=== PATIENT | male | born 1945 | race Caucasian/White ===

== ENCOUNTER → 2023-01-30 10:09 | Outpatient (CLI) | payer MEDICARE, SELFPAY ==
--- NOTE | ~2023-01-30 | MR_ITS ---
MRI of the left shoulder Technique: Axial proton-density fat-sat images, coronal proton density fat-sat and T2 fat-sat images, and sagittal T1-weighted and T2 fat-sat images were acquired. Clinical History: Pain Findings: There is moderate to advanced AC joint degenerative change. There is bony productive change at the distal clavicle. Coracoclavicular, coracoacromial, and coracohumeral ligaments appear intact. Possible focal bursal surface partial thickness tearing at the very anterior, distal supraspinatus te ndon insertion. No definite full-thickness tear of the supraspinatus or infraspinatus tendon is ident ified. There is mild tendinosis. Subscapularis tendon is intact with mild diffuse tendinosis. Tendon of long head of the biceps demonstrates possible longitudinal split tearing. No complete rupture evid ent. Blunting of the superior labrum suggesting labral tear. Probable subtle labral foramen noted at the a nterosuperior aspect. There is thickening and increased signal of the inferior glenohumeral ligament. There is no degenerat xuan change of the glenohumeral joint. There is fluid distention of the subacromial/subdeltoid bursa. No muscle atrophy or edema. Impression: Thickening and increased signal of the inferior glenohumeral ligament suggests adhesive capsulitis. Subacromial/subdeltoid bursitis. Questionable focal bursal surface tearing at the very anterior, distal supraspinatus tendon insertion . No full-thickness rotator cuff tear seen. There is mild rotator cuff tendinosis. Blunting of the superior labrum likely represents superior labral tear. No definite anterior or poste rior extension. Moderate to advanced AC joint degenerative change. Reviewed, dictated and finalized at [facility]. Impression: Thickening and increased signal of the inferior glenohumeral ligament suggests adhesive capsulitis. Subacromial/subdeltoid bursitis. Questionable focal bursal surface tearing at the very anterior, distal supraspi natus tendon insertion. No full-thickness rotator cuff tear seen. There is mild rotator cuff tendinosis. Blunting of the superior labrum likely represents superior labral tear. No defi nite anterior or posterior extension. Moderate to advanced AC joint degenerative change.
== END ==
PROVIDERS: PCP Pediatrics; Visit Provider Pediatrics
DX: M19.012 Primary osteoarthritis, left shoulder (principal)
CPT/HCPCS: 73221

== ENCOUNTER → 2023-05-17 08:15 | Outpatient (CLI) | payer MEDICARE, SELFPAY ==
--- NOTE | ~2023-05-17 | MR_ITS ---
EXAMINATION: MR shoulder RT wo con DATE: 05/17/2023 09:01 INDICATION: Right shoulder pain TECHNIQUE: Magnetic resonance imaging (MRI) of the right shoulder was performed without intravenous c ontrast. Sequences included axial PD-weighted FS FSE, coronal oblique PD-weighted FS FSE, coronal obl ique T2-weighted FS FSE, sagittal PD-weighted FS FSE, and sagittal T1-weighted SE. COMPARISON: None. FINDINGS: Coracoacromial arch: The acromion undersurface is flat in morphology (type I). The coracoacromial ligament is normal. Mode rate acromioclavicular osteoarthritis. Rotator cuff: Full-thickness tear along the cephalad two thirds of the lesser tuberosity insertion of the subscapul trinity tendon. The caudal third of the tendon as well seated superficial fibers contiguous with the tra nsverse humeral ligament remains intact. The tear extends posteriorly as a full-thickness tear extend ing 1.6 cm anteroposteriorly along the superior and anterior half of the middle facet of the greater tuberosity which involves essentially the entire supraspinatus tendon and the conjoined portion of th e supraspinatus and infraspinatus tendons. The of the attenuated medial tear margin is retracted appr oximately 3-3.5 cm medially. There is moderate tendinopathy without discrete tear of the more posteri or infraspinatus tendon. The teres minor tendon is normal. There is only mild increased signal and fa tty atrophy of the supraspinatus and subscapularis muscle bellies. Biceps tendon, glenoid labrum and glenohumeral cartilage: Tear of the superior to posterosuperior glenoid labrum beginning anteriorly at the 1:00 position exte nding posteriorly to the 10:00 position. Mild tendinopathy without tear of the long head biceps tendo n which is medially subluxed from the intertubercular groove extending across the caudal aspect of th e lesser tuberosity footplate of the torn portion of the subscapularis tendon. Glenohumeral cartilage is normal. Fluid: Small glenohumeral joint effusion and proportional extension of a small amount of fluid along the concha g head biceps tendon. Small amount of fluid in the subacromial/subdeltoid bursa likely extension of t he glenohumeral joint effusion through the full-thickness rotator cuff tear defect. No loose osteocho ndral bodies. Bones: Slight cephalad subluxation of the humeral head with respect to the glenoid and mild narrowing of the subacromial space likely resulting from a rotator cuff tear. No fracture or pathologic marrow replac ing process.. IMPRESSION: 1. Full-thickness tear of the cephalad two thirds of the subscapularis tendon, anterior supraspinatus tendon and part of the conjoined portion of the supraspinatus and infraspinatus tendons. 2. Secondary medial subluxation of the long head biceps tendon across the subscapularis tendon tear d efect with mild tendinopathy without discrete tear of the long head biceps tendon. 3. SLAP tear of the superior to posterosuperior glenoid labrum. 4. Moderate acromioclavicular osteoarthritis. Reviewed, dictated and finalized at [facility]. IMPRESSION: 1. Full-thickness tear of the cephalad two thirds of the subscapularis tendon, anterior supraspinatus tendon and part of the conjoined portion of the supraspi natus and infraspinatus tendons. 2. Secondary medial subluxation of the long head biceps tendon across the subsc apularis tendon tear defect with mild tendinopathy without discrete tear of the long head biceps tendon. 3. SLAP tear of the superior to posterosuperior glenoid labrum. 4. Moderate acromioclavicular osteoarthritis.
== END ==
PROVIDERS: PCP Pediatrics; Visit Provider Orthopaedic Surgery
DX: M19.011 Primary osteoarthritis, right shoulder (principal); S43.431A Superior glenoid labrum lesion of right shoulder, initial encounter; S43.31 Subluxation and dislocation of scapula; S45.3 Injury of superficial vein at shoulder and upper arm level; S46.011A Strain of muscle(s) and tendon(s) of the rotator cuff of right shoulder, initial encounter; X58.XXXA Exposure to other specified factors, initial encounter
CPT/HCPCS: 73221